=== PATIENT | male | born 1995 | race Caucasian/White ===

== ENCOUNTER 2019-02-26 18:11 | Inpatient (IN) | payer BC, OTHER ==
[2019-02-26] MEDS ORDERED: Sodium Chloride 0.9% 2.5 ML Syringe FLUSH PRN (18:15)
[2019-02-26] MEDS ORDERED: Sodium Chloride 0.9% 10 ML Syringe FLUSH PRN (18:15)
[2019-02-26] MEDS ORDERED: HYDROmorphone 1 MG/ML Syringe ONE ×2 (18:15→18:26)
[2019-02-26] MEDS ORDERED: HYDROmorphone 1 MG/ML Syringe IVPUSH ONE ×3 (18:16→19:33)
[2019-02-26] MEDS ORDERED: Ondansetron 4 MG/2 ML SDV IVPUSH ONE (18:19)
[2019-02-26] MEDS ORDERED: Sodium Chloride 0.9% 1,000 ML IV ONE (18:19)
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
[2019-02-26] MEDS ORDERED: Diphtheria,Pertussis(Acell),Tetanus Vaccine 0.5 ML Syringe IM ONE (18:31)
[2019-02-26 18:49] LABS: BLOOD UREA NITROGEN,BUN 12 mg/dL (7.0-18.0); CHLORIDE,CL 103 mmol/L (98-107); GLUCOSE RANDOM 100 mg/dL (74-106); POTASSIUM,K 2.8 mmol/L (3.5-5.1); SODIUM,NA 141 mmol/L (136-148)
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
[2019-02-26] MEDS ORDERED: Bupivacaine 25%/EPINEPHrine/PF 30 ML ONE (20:16)
[2019-02-26] MEDS ORDERED: Lidocaine 1% 20 ML MDV ONE (20:16)
[2019-02-26] MEDS ORDERED: Lidocaine 1% with EPINEPHrine 1:100,000 20 ML MDV ONE (20:16)
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
[2019-02-26] MEDS ORDERED: Lactated Ringers 1,000 ML IV ONE (20:30)
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
[2019-02-26] MEDS ORDERED: Iopamidol 755 MG/ML 500 ML Multipack Bottle IVPUSH STA (20:50)
[2019-02-26] MEDS ORDERED: Midazolam 1 MG/ML 2 ML SDV ONE (20:54)
[2019-02-26] MEDS ORDERED: Rocuronium 100 MG/10 ML Syringe ONE (20:54)
[2019-02-26] MEDS ORDERED: Ondansetron 4 MG/2 ML SDV ONE (20:54)
[2019-02-26] MEDS ORDERED: Propofol 200 MG/20 ML SDV ONE (20:54)
[2019-02-26] MEDS ORDERED: fentaNYL 250 MCG/5 ML SDV ONE ×2 (20:54→22:49)
[2019-02-26] MEDS ORDERED: Lidocaine 2% 5 ML SDV ONE (20:54)
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
[2019-02-26] MEDS ORDERED: Sodium Chloride 0.9% 20 ML ONE (21:37)
[2019-02-26] MEDS ORDERED: ceFAZolin 1 GM Vial ONE (21:37)
[2019-02-26] MEDS ORDERED: ceFAZolin/Dextrose,Iso-Osmotic 2 GM/50 ML Duplex Bag IV ONE (21:38)
--- NOTE | 2019-02-26 22:02 | PCM.PREANE ---
Preanesthetic Assessment - Anesthesia/Transfusion/Family Hx Anesthesia History: Prior Anesthesia Without Reaction Family History of Anesthesia Reaction: No Transfusion History: No Prior Transfusion(s) Intubation History: Unknown - Review of Systems General: No Symptoms Pulmonary: No Symptoms Cardiovascular: No Symptoms Gastrointestinal: No Symptoms Neurological: Confusion Other: Reports: None - Physical Assessment NPO Status Date: 02/26/19 NPO Status Time: 17:00 Vital Signs: Last Vital Signs Temp 97.6 F 02/26/19 18:11 Pulse 101 H 02/26/19 18:11 Resp 18 02/26/19 18:11 BP 136/88 02/26/19 18:11 Pulse Ox 98 02/26/19 18:11 Height: 5 ft 10 in Weight: 136.078 kg ASA Class: 2E Mental Status: Alert & Oriented x3 Airway Class: Mallampati = 2 Dentition: Reports: Normal Dentition Thyro-Mental Finger Breadths: 3 Mouth Opening Finger Breadths: 3 ROM/Head Extension: Full Lungs: Clear to Auscultation, Normal Respiratory Effort Cardiovascular: Regular Rate, Regular Rhythm, Tachycardia - Lab Values: Laboratory Last Values WBC 16.31 K/uL (4.0-11.0) H 02/26/19 18:09 RBC 5.02 M/uL (4.50-5.90) 02/26/19 18:09 Hgb 16.9 g/dL (13.0-17.0) 02/26/19 18:09 Hct 48.4 % (38.0-50.0) 02/26/19 18:09 MCV 96.4 fL (80.0-98.0) 02/26/19 18:09 MCH 33.7 pg (27.0-32.0) H 02/26/19 18:09 MCHC 34.9 g/dL (31.0-37.0) 02/26/19 18:09 RDW Std Deviation 44.7 fl (28.0-62.0) 02/26/19 18:09 RDW Coeff of Audie 13 % (11.0-15.0) 02/26/19 18:09 Plt Count 269 K/uL (150-400) 02/26/19 18:09 MPV 11.00 fL (7.40-12.00) 02/26/19 18:09 Neut % (Auto) 63.7 % (48.0-80.0) 02/26/19 18:09 Lymph % (Auto) 27.2 % (16.0-40.0) 02/26/19 18:09 Weber % (Auto) 6.7 % (0.0-15.0) 02/26/19 18:09 Eos % (Auto) 2.2 % (0.0-7.0) 02/26/19 18:09 Baso % (Auto) 0.2 % (0.0-1.5) 02/26/19 18:09 Neut # (Auto) 10.4 K/uL (1.4-5.7) H 02/26/19 18:09 Lymph # (Auto) 4.4 K/uL (0.6-2.4) H 02/26/19 18:09 Weber # (Auto) 1.1 K/uL (0.0-0.8) H 02/26/19 18:09 Eos # (Auto) 0.4 K/uL (0.0-0.7) 02/26/19 18:09 Baso # (Auto) 0.0 K/uL (0.0-0.1) 02/26/19 18:09 Nucleated RBC % 0.0 /100WBC 02/26/19 18:09 Nucleated RBCs # 0 K/uL 02/26/19 18:09 INR 1.03 02/26/19 18:09 Sodium 141 mmol/L (136-148) 02/26/19 18:09 Potassium 2.8 mmol/L (3.5-5.1) L 02/26/19 18:09 Chloride 103 mmol/L (98-107) 02/26/19 18:09 Carbon Dioxide 23.0 mmol/L (21.0-32.0) 02/26/19 18:09 BUN 12 mg/dL (7.0-18.0) 02/26/19 18:09 Creatinine 1.1 mg/dL (0.8-1.3) 02/26/19 18:09 Est Cr Clr Drug Dosing 107.84 mL/min 02/26/19 18:09 Estimated GFR (MDRD) > 60.0 ml/min 02/26/19 18:09 Glucose 100 mg/dL (74-106) 02/26/19 18:09 Calcium 8.8 mg/dL (8.5-10.1) 02/26/19 18:09 Total Bilirubin 0.4 mg/dL (0.2-1.0) 02/26/19 18:09 AST 35 IU/L (15-37) 02/26/19 18:09 ALT 37 IU/L (14-63) 02/26/19 18:09 Alkaline Phosphatase 19 U/L (46-116) L 02/26/19 18:09 Total Protein 8.4 g/dL (6.4-8.2) H 02/26/19 18:09 Albumin 4.5 g/dL (3.4-5.0) 02/26/19 18:09 Globulin 3.9 g/dL (2.6-4.0) 02/26/19 18:09 Albumin/Globulin Ratio 1.2 (0.9-1.6) 02/26/19 18:09 Urine Color YELLOW 02/26/19 20:20 Urine Appearance CLEAR 02/26/19 20:20 Urine pH 6.0 (5.0-8.0) 02/26/19 20:20 Ur Specific Wallace 1.025 (1.001-1.035) 02/26/19 20:20 Urine Protein 30 mg/dL (NEGATIVE) H 02/26/19 20:20 Urine Glucose (UA) NEGATIVE mg/dL (NEGATIVE) 02/26/19 20:20 Urine Ketones TRACE mg/dL (NEGATIVE) H 02/26/19 20:20 Urine Occult Blood SMALL (NEGATIVE) H 02/26/19 20:20 Urine Nitrite NEGATIVE (NEGATIVE) 02/26/19 20:20 Urine Bilirubin NEGATIVE (NEGATIVE) 02/26/19 20:20 Urine Urobilinogen 0.2 EU/dL (<2.0) 02/26/19 20:20 Ur Leukocyte Esterase NEGATIVE (NEGATIVE) 02/26/19 20:20 Urine RBC 0-1 (0-2/HPF) 02/26/19 20:20 Urine WBC 0-1 (0-5/HPF) 02/26/19 20:20 Ur Epithelial Cells RARE (NONE-FEW) 02/26/19 20:20 Urine Bacteria 1+ (NEGATIVE) H 02/26/19 20:20 Urine Mucus LIGHT (NONE-MOD) 02/26/19 20:20 Urine Opiates Screen NEGATIVE (NEGATIVE) 02/26/19 20:20 Ur Oxycodone Screen NEGATIVE (NEGATIVE) 02/26/19 20:20 Urine Methadone Screen NEGATIVE (NEGATIVE) 02/26/19 20:20 Ur Barbiturates Screen NEGATIVE (NEGATIVE) 02/26/19 20:20 Ur Phencyclidine Scrn NEGATIVE (NEGATIVE) 02/26/19 20:20 Ur Amphetamine Screen NEGATIVE (NEGATIVE) 02/26/19 20:20 U Methamphetamines Scrn NEGATIVE (NEGATIVE) 02/26/19 20:20 U Benzodiazepines Scrn NEGATIVE (NEGATIVE) 02/26/19 20:20 U Cocaine Metab Screen NEGATIVE (NEGATIVE) 02/26/19 20:20 U Marijuana (THC) Screen NEGATIVE (NEGATIVE) 02/26/19 20:20 Ethyl Alcohol 75 mg/dL 02/26/19 18:09 - Allergies Allergies/Adverse Reactions: Allergies Allergy/AdvReac Type Severity Reaction Status Date / Time No Known Allergies Allergy Verified 02/26/19 18:31 - Blood Blood Available: Yes - Acknowledgements Anesthesia Type Planned: General Anesthesia Pt an Appropriate Candidate for the Planned Anesthesia: Yes Alternatives and Risks of Anesthesia Discussed w Pt/Guardian: Yes Pt/Guardian Understands and Agrees with Anesthesia Plan: Yes PreAnesthesia Questionnaire - Past Health History Medical/Surgical History: Denies Medical/Surgical History HEENT History: Reports: None Cardiovascular History: Reports: None Respiratory History: Reports: Other (See Below) (Smoker) Gastrointestinal History: Reports: Other (See Below) (Bloody stools for years ( Has not been seen for this)) Genitourinary History: Reports: None Musculoskeletal History: Reports: Other (See Below) (Multiple traumatic fractures) Neurological History: Reports: None Psychiatric History: Reports: None Endocrine/Metabolic History: Reports: Obesity/BMI 30+ Hematologic History: Reports: None Immunologic History: Reports: None Oncologic (Cancer) History: Reports: None Dermatologic History: Reports: None - Infectious Disease History Infectious Disease History: Reports: None - Past Surgical History HEENT Surgical History: Reports: Other (See Below) ([place] teeth extraction) - SUBSTANCE USE Smoking Status *Q: Current Every Day Smoker Tobacco Use Within Last Twelve Months: Cigarettes (1PPD x 8 years) Days Per Week of Alcohol Use: 7 Number of Drinks Per Day: 2 Total Drinks Per Week: 14 Recreational Drug Use History: Yes Recreational Drug Type: Reports: Marijuana/Hashish - HOME MEDS Home Medications: Home Meds . [No Known Home Meds] 02/26/19 [History] - CURRENT (IN HOUSE) MEDS Current Meds: Current Medications Sodium Chloride (Saline Flush) 10 ml FLUSH ASDIRECTED PRN PRN Reason: Keep Vein Open Sodium Chloride (Saline Flush) 2.5 ml FLUSH ASDIRECTED PRN PRN Reason: Keep Vein Open Discontinued Medications Cefazolin Sodium (Ancef) Confirm Administered Dose 1 gm .ROUTE .STK-MED ONE Stop: 02/26/19 21:38 Cefazolin Sodium/Dextrose (Ancef) Confirm Administered Dose 2 gm IV .STK-MED ONE Stop: 02/26/19 21:39 Diphtheria/Tetanus/Acell Pertussis (Adacel) 0.5 ml IM .ONCE ONE Stop: 02/26/19 18:32 Last Admin: 02/26/19 18:53 Dose: 0.5 ml Fentanyl (Sublimaze) Confirm Administered Dose 250 mcg .ROUTE .STK-MED ONE Stop: 02/26/19 20:55 Hydromorphone HCl (Dilaudid) Confirm Administered Dose 1 mg .ROUTE .STK-MED ONE Stop: 02/26/19 18:16 Last Admin: 02/26/19 18:50 Dose: Not Given Hydromorphone HCl (Dilaudid) Confirm Administered Dose 1 mg .ROUTE .STK-MED ONE Stop: 02/26/19 18:27 Last Admin: 02/26/19 18:50 Dose: Not Given Hydromorphone HCl (Dilaudid) 1 mg IVPUSH ONETIME ONE Stop: 02/26/19 18:17 Last Admin: 02/26/19 18:52 Dose: 1 mg Hydromorphone HCl (Dilaudid) 1 mg IVPUSH ONETIME ONE Stop: 02/26/19 18:27 Last Admin: 02/26/19 18:52 Dose: 1 mg Hydromorphone HCl (Dilaudid) 1 mg IVPUSH ONETIME ONE Stop: 02/26/19 19:34 Last Admin: 02/26/19 19:37 Dose: 1 mg Sodium Chloride (Normal Saline) 1,000 mls @ 999 mls/hr IV STAT ONE Stop: 02/26/19 19:19 Last Admin: 02/26/19 18:54 Dose: 999 mls/hr Bupivacaine HCl/Epinephrine Bitart (Sensorc Mpf 0.25%-Epi [id number]) Confirm Administered Dose 60 mls @ as directed .ROUTE .STK-MED ONE Stop: 02/26/19 20:17 Lactated Ringer's (Ringers, Lactated) 1,000 mls @ 999 mls/hr IV .BOLUS ONE Stop: 02/26/19 21:30 Last Admin: 02/26/19 20:36 Dose: 999 mls/hr Sodium Chloride (Normal Saline) Confirm Administered Dose 20 mls @ as directed .ROUTE .STK-MED ONE Stop: 02/26/19 21:38 Iopamidol (Isovue Multipack-370 (76%)) 100 ml IVPUSH ONETIME STA Stop: 02/26/19 20:51 Last Admin: 02/26/19 20:50 Dose: 100 ml Lidocaine (Xylocaine-Mpf 2%) Confirm Administered Dose 5 ml .ROUTE .STK-MED ONE Stop: 02/26/19 20:55 Lidocaine HCl (Xylocaine 1%) Confirm Administered Dose 20 ml .ROUTE .STK-MED ONE Stop: 02/26/19 20:17 Lidocaine/Epinephrine (Xylocaine 1% With Epinephrine 1:100,000) Confirm Administered Dose 20 ml .ROUTE .STK-MED ONE Stop: 02/26/19 20:17 Midazolam HCl (Versed 1 Mg/Ml) Confirm Administered Dose 2 mg .ROUTE .STK-MED ONE Stop: 02/26/19 20:55 Ondansetron HCl (Zofran) 4 mg IVPUSH ONETIME ONE Stop: 02/26/19 18:20 Last Admin: 02/26/19 18:52 Dose: 4 mg Ondansetron HCl (Zofran) Confirm Administered Dose 4 mg .ROUTE .STK-MED ONE Stop: 02/26/19 20:55 Propofol (Diprivan 20 Ml) Confirm Administered Dose 200 mg .ROUTE .STK-MED ONE Stop: 02/26/19 20:55 Rocuronium [place] (Zemuron) Confirm Administered Dose 100 mg .ROUTE .STK-MED ONE Stop: 02/26/19 20:55 Succinylcholine Chloride (Succinylcholine Chloride) Confirm Administered Dose 200 mg .ROUTE .STK-MED ONE Stop: 02/26/19 20:55
[2019-02-26] MEDS ORDERED: Phenylephrine 1% 10 MG/ML SDV ONE (22:11)
[2019-02-26] MEDS ORDERED: ePHEDrine 50 MG/ML SDV ONE (22:11)
[2019-02-26] MEDS ORDERED: Ketamine 500 mg/10 ML MDV ONE (22:49)
[2019-02-26] MEDS ORDERED: 50% Dextrose in Water 50 ML Syringe IVPUSH PRN (23:42)
[2019-02-26] MEDS ORDERED: fentaNYL 100 MCG/2 ML SDV IVPUSH PRN (23:42)
[2019-02-26] MEDS ORDERED: Atropine 0.1 MG/ML 10 ML Syringe IVPUSH PRN ×2 (23:42)
[2019-02-26] MEDS ORDERED: Albuterol 0.083% 2.5 MG/3 ML Neb Soln NEB PRN (23:42)
[2019-02-26] MEDS ORDERED: Naloxone 0.4 MG/ML Syringe IVPUSH PRN (23:42)
[2019-02-26] MEDS ORDERED: EPINEPHrine 1:10,000 1 MG/10 ML Syringe IVPUSH PRN (23:42)
[2019-02-27] MEDS ORDERED: HYDROmorphone 2 MG/ML Syringe ONE (00:06)
[2019-02-27] MEDS ORDERED: fentaNYL 100 MCG/2 ML SDV ONE (01:20)
[2019-02-27] MEDS ORDERED: ceFAZolin/Dextrose,Iso-Osmotic 2 GM/50 ML Duplex Bag IV ONE (01:33)
[2019-02-27] MEDS ORDERED: Sodium Chloride 0.9% 20 ML ONE (01:35)
[2019-02-27] MEDS ORDERED: ceFAZolin 1 GM Vial ONE (01:35)
[2019-02-27] MEDS ORDERED: Vancomycin 1 GM AdvVial ONE (01:45)
[2019-02-27] MEDS ORDERED: Docusate Sodium 100 MG Cap PO PRN (02:21)
[2019-02-27] MEDS ORDERED: diphenhydrAMINE 50 MG/ML SDV IVPUSH PRN (02:21)
--- NOTE | 2019-02-27 02:21 | PCM.OPNOTE ---
- General Post-Op/Procedure Note Date of Surgery/Procedure: 02/27/19 Operative Procedure(s): 1) ORIF left bimalleolar ankle fracture with syndesmotic fixation. 2) ORIF right both bone forearm fracture. 3) ORIF left clavicle. 4) application of right long arm splint Pre Op Diagnosis: 1) closed left bimalleolar ankle fracture with syndesmotic disruption. 2) closed right both bone forearm fracture. 3) closed left clavicle fracture. 4) closed right fifth metacarpal base fracture Post-Op Diagnosis: Same Anesthesia Technique: General ET Tube Primary Surgeon: Rod Parker Manager Customs: Helen Macedo EBL in mLs: 300 Complications: None Condition: Good
[2019-02-27] MEDS ORDERED: Famotidine 20 MG Tab PO SCH ×2 (02:30→20:00)
[2019-02-27 02:39] LABS: BLOOD UREA NITROGEN,BUN 11 mg/dL (7.0-18.0); CARBON DIOXIDE,CO2 20.5 mmol/L (21.0-32.0); CHLORIDE,CL 106 mmol/L (98-107); GLUCOSE RANDOM 136 mg/dL (74-106); POTASSIUM,K 4.6 mmol/L (3.5-5.1); SODIUM,NA 140 mmol/L (136-148)
--- NOTE | 2019-02-27 03:02 | PCM.POSTAN ---
POST ANESTHESIA ASSESSMENT - MENTAL STATUS Mental Status: Alert, Oriented - VITAL SIGNS Vital Signs: Last Vital Signs Temp 97.9 F 02/27/19 02:24 Pulse 113 H 02/27/19 02:57 Resp 20 02/27/19 02:57 BP 137/83 02/27/19 02:57 Pulse Ox 95 02/27/19 02:57 - RESPIRATORY Respiratory Status: Respiratory Rate WNL, Airway Patent, O2 Saturation Stable - CARDIOVASCULAR CV Status: Pulse Rate WNL, Blood Pressure Stable - GASTROINTESTINAL GI Status: No Symptoms - PAIN Pain Score: 1 - POST OP HYDRATION Hydration Status: Adequate & Stable - OBSERVATIONS Free Text/Narrative:: Continuous central pulse oximetry ordered due to high narcotic demand and suspected BINA.
[2019-02-27] MEDS ORDERED: Enoxaparin 40 MG/0.4 ML Syringe SUBCUT SCH (04:00)
[2019-02-27] MEDS: Acetaminophen/oxyCODONE 325-5 MG Tab PO PRN ×2 (05:10→09:38)
[2019-02-27 05:25] LABS: BLOOD UREA NITROGEN,BUN 10 mg/dL (7.0-18.0); CARBON DIOXIDE,CO2 18.4 mmol/L (21.0-32.0); CHLORIDE,CL 106 mmol/L (98-107); GLUCOSE RANDOM 119 mg/dL (74-106); POTASSIUM,K 4.4 mmol/L (3.5-5.1); SODIUM,NA 136 mmol/L (136-148)
[2019-02-27] MEDS: traMADol 50 MG Tab PO PRN ×2 (06:30→12:27)
--- NOTE | 2019-02-27 07:04 | PCM48HPAN ---
Post Anesthesia Note - EVALUATION WITHIN 48HRS OF ANESTHETIC Vital Signs in Normal Range: Yes Patient Participated in Evaluation: Yes Respiratory Function Stable: Yes Airway Patent: Yes Cardiovascular Function Stable: Yes Hydration Status Stable: Yes Pain Control Satisfactory: Yes Nausea and Vomiting Control Satisfactory: Yes Mental Status Recovered: Yes Vital Signs: Last Vital Signs Temp 98.5 F 02/27/19 05:20 Pulse 112 H 02/27/19 05:50 Resp 16 02/27/19 03:20 BP 122/83 02/27/19 05:50 Pulse Ox 95 02/27/19 06:00
[2019-02-27] MEDS ORDERED: Magnesium Sulfate/Water 2 GM in Premix Bag 1 BAG IV ONE (07:49)
[2019-02-27] MEDS ORDERED: ceFAZolin 2 GM in Premix Bag 1 BAG IV SCH ×2 (09:00→10:00)
[2019-02-27] MEDS ORDERED: HYDROmorphone 2 MG/ML Syringe IVPUSH ONE (09:39)
[2019-02-27] MEDS ORDERED: diazePAM 5 MG/ML MDV IVPUSH ONE (09:42)
[2019-02-27] MEDS ORDERED: HYDROmorphone 1 MG/ML Syringe IVPUSH PRN (10:32)
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
[2019-02-27] MEDS ORDERED: Nicotine 14 MG/24 Hr Patch TRDERM SCH (10:45)
[2019-02-27] MEDS ORDERED: Lactated Ringers 1,000 ML IV SCH (10:45)
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
[2019-02-27] MEDS ORDERED: hydrOXYzine Pamoate 25 MG Cap PO SCH (12:00)
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
[2019-02-27] MEDS ORDERED: Gabapentin 300 MG Cap PO SCH (14:00)
--- NOTE | 2019-02-27 17:52 | CR ---
Ankle, left clavicle and right forearm: Two fluoroscopic spot views were obtained utilizing C-arm device of the left clavicle. Three fluoroscopic spot views utilizing C-arm device were obtained of the ankle. Two fluoroscopic spot views were obtained of the right forearm again using utilizing C-arm device. Comparison: No previous study available for comparison at this time. Findings: Fractures are seen within the shaft of the ulna and radius on the right side which shows evidence of plate and screws which affix the fractures in near-anatomic alignment. Skin nayla are present. Distal fibular shaft fracture is seen as well as medial malleolus fracture which shows evidence of fixation with plate and screws. Alignment appears near- anatomic. Skin nayla are present. Left clavicle fracture is seen which shows plate and screws with alignment appearing near anatomic. Impression: Procedural study showing fixation of fractures within the left clavicle, right forearm, left distal fibula and medial malleolus of the ankle. Diagnostic code #2 [id number]
== END 2019-02-27 14:40 | DRG 493 ==
LOC: MW.ED 18:11 → MW.SDS 19:18 → MW.MS 19:23 → MW.SDS 22:17 → MW.MS 22:18
PROVIDERS: ADMIT Surgery; ATTEND Surgery
PROC: 0PSB04Z Reposition Left Clavicle with Internal Fixation Device, Open Approach (ICD-10-PCS; principal; 2019-02-27)
PROC: 0QSK04Z Reposition Left Fibula with Internal Fixation Device, Open Approach (ICD-10-PCS; 2019-02-27)
PROC: 0PH Upper Bones, Insertion (ICD-10-PCS; 2019-02-27)
PROC: 0PSH04Z Reposition Right Radius with Internal Fixation Device, Open Approach (ICD-10-PCS; 2019-02-27)
PROC: 0PSK04Z Reposition Right Ulna with Internal Fixation Device, Open Approach (ICD-10-PCS; 2019-02-27)
DX: S82.842A Displaced bimalleolar fracture of left lower leg, initial encounter for closed fracture (principal); S52.501A Unspecified fracture of the lower end of right radius, initial encounter for closed fracture; S52.691A Other fracture of lower end of right ulna, initial encounter for closed fracture; Z68.41 Body mass index [BMI] 40.0-44.9, adult; S42.002A Fracture of unspecified part of left clavicle, initial encounter for closed fracture; E66.01 Morbid (severe) obesity due to excess calories; S62.346A Nondisplaced fracture of base of fifth metacarpal bone, right hand, initial encounter for closed fracture; V89.2XXA Person injured in unspecified motor-vehicle accident, traffic, initial encounter; Z23 Encounter for immunization; V29.88XA Motorcycle rider (driver) (passenger) injured in other specified transport accidents, initial encounter
CPT/HCPCS: 36415; 70450; 70450-26; 71260; 71260-26; 72125; 72125-26; 72128; 72128-26; 72131; 72131-26; 73020-26-LT; 73020-26-RT; 73020-LT; 73020-RT; 73090-26-RT; 73090-RT; 73100-26-RT; 73100-RT; 73560-26-LT; 73560-LT; 73600-26-RT; 73600-RT; 73610-26-LT; 73610-LT; 74177; 74177-26; 80048; 80053; 80305-QW; 81001; 83735; 85025; 85027; 85610; 90471; 90715; 93005; 96361; 96374; 96375; 96376; 99285; 99291; 99292; A9270-GY; C1713; C1769; G0390; G0480; J0330; J0690; J1170; J1650; J2001; J2250; J2370; J2405; J2704; J3010; J3475; J7040; J7120; Q9967